=== PATIENT | female | born 1990 | race Caucasian/White ===

== ENCOUNTER 2020-10-27 00:36 | Emergency (ER) | payer MEDICAID ==
[~2020-10-27] VITALS: Ht 165.1 cm; Wt 50.0 kg
[~2020-10-27 00:36] MED LIST: AZIT-63 PO; HYDR-4383 PO; NO HOME MEDS
[2020-10-27] MEDS ORDERED: pantoprazole 40 MG vial IV ONE (00:45)
[2020-10-27] MEDS ORDERED: famotidine/PF 10 mg/ml inj IV ONE (00:45)
[2020-10-27] MEDS ORDERED: normal saline 1000ML IV soln IVB ONE (00:45)
[2020-10-27] MEDS ORDERED: ketorolac tromethamine 15mg/ml inj. IV ONE (00:45)
[2020-10-27] MEDS ORDERED: ondansetron/PF 4mg/2ml inj IV ONE (00:45)
[2020-10-27 01:20] LABS: BASOPHILS # (AUTO) 0.1 X10'3 (0-0.2); BASOPHILS % (AUTO) 0.6 % (0-1); EOSINOPHILS % (AUTO) 0.1 % (0-6); HEMATOCRIT 38.3 % (35.0-45.0); LYMPHOCYTES # (AUTO) 1.1 X10'3 (1.1-4.8); LYMPHOCYTES % (AUTO) 11.1 % (21-51); MEAN CORPUSCULAR HEMOGLOBIN 28.8 PG (27.0-31.0); MEAN CORPUSCULAR VOLUME 84.7 FL (78-98); MEAN PLATELET VOLUME 7.8 FL (7.4-10.4); MONOCYTES # (AUTO) 0.6 X10'3 (0-0.9); MONOCYTES % (AUTO) 5.8 % (2-12); NEUTROPHILS # (AUTO) 8.2 X10'3 (1.8-7.7); NEUTROPHILS % (AUTO) 82.4 % (42-75); PLATELET COUNT 294 X10'3 (140-440); RED BLOOD COUNT 4.52 X10'6 (4.20-5.60); RED CELL DISTRIBUTION WIDTH 13.4 % (11.5-14.5)
[2020-10-27 01:24] LABS: ALANINE AMINOTRANSFERASE 27 U/L (12-78); ALBUMIN 4.1 G/DL (3.4-5.0); ALBUMIN/GLOBULIN RATIO 1.1 (1.1-1.5); ALKALINE PHOSPHATASE 65 IU/L (46-116); ANION GAP 11 (8-16); ASPARTATE AMINO TRANSFERASE 19 U/L (10-37); BILIRUBIN,TOTAL 0.2 MG/DL (0.1-1.0); BLOOD UREA NITROGEN 22 MG/DL (7-18); BUN/CREATININE RATIO 24.7 (6.6-38.0); CALCIUM 9.2 MG/DL (8.5-10.1); CHLORIDE 102 MMOL/L (99-107); CREATININE 0.89 MG/DL (0.40-0.90); GLUCOSE 139 MG/DL (70-104); LIPASE 92 U/L (73-393); POTASSIUM 3.2 MMOL/L (3.5-5.1); SODIUM 140 MMOL/L (135-145); TOTAL PROTEIN 7.9 G/DL (6.4-8.2); eGFR 74 ML/MIN
[2020-10-27] MEDS ORDERED: potassium Cl 20 mEq SR tablet PO STA (01:35)
[2020-10-27] MEDS ORDERED: OMEP20CA15 PO (01:57)
[2020-10-27] MEDS ORDERED: FAMO20TA44 PO (01:57)
[2020-10-27] MEDS ORDERED: ONDA4TAB6 PO (01:57)
[2020-10-27] MEDS ORDERED: SUCR1TAB34 PO (01:57)
--- NOTE | 2020-10-27 02:06 | NUR ---
pt drank 16oz of water, no complaints of nausea or vomitting
[2020-10-27 02:19] VITALS: BP 125/86
== END 2020-10-27 02:49 | disposition home or self-care (01) ==
LOC: ER 00:37
DX: K52.9 Noninfective gastroenteritis and colitis, unspecified (principal); E87.6 Hypokalemia; Z86.2 Personal history of diseases of the blood and blood-forming organs and certain disorders involving the immune mechanism; Z88.0 Allergy status to penicillin; Z79.2 Long term (current) use of antibiotics; Z79.899 Other long term (current) drug therapy
CPT/HCPCS: 36415; 80053; 83690; 85025; 96361; 96374; 96375; 99284; C9113; J1885; J2405; J3490; J7030

== ENCOUNTER 2020-10-29 09:18 | Emergency (ER) | payer MEDICAID ==
[2020-10-29] VITALS (8 sets, daily range): BP systolic 113–130; BP diastolic 72–83
[~2020-10-29] VITALS: Ht 165.1 cm; Wt 50.0 kg
[~2020-10-29 09:18] MED LIST changes: +FAMO20TA44 PO; +OMEP20CA15 PO; +ONDA4TAB6 PO; +SUCR1TAB34 PO
[2020-10-29] MEDS ORDERED: LIDOcaine Viscous 15ml cup MM ONE (11:20)
[2020-10-29] MEDS ORDERED: mag hydrox/Alum hydrox/simeth 30ml oral suspension PO ONE (11:20)
[2020-10-29] MEDS ORDERED: pantoprazole 40 MG vial IV ONE (11:20)
[2020-10-29] MEDS ORDERED: normal saline 1000ml 1,000 ML IV ONE (11:20)
[2020-10-29 11:35] LABS: BASOPHILS % (AUTO) 0.2 % (0-1); EOSINOPHILS % (AUTO) 0.1 % (0-6); HEMATOCRIT 42.2 % (35.0-45.0); HEMOGLOBIN 13.8 g/dl (12.0-16.0); LYMPHOCYTES # (AUTO) 0.7 X10'3 (1.1-4.8); LYMPHOCYTES % (AUTO) 6.5 % (21-51); MEAN CORPUSCULAR HGB CONC 32.7 g/dL (33.0-36.5); MEAN CORPUSCULAR VOLUME 85.5 FL (78-98); MEAN PLATELET VOLUME 7.7 FL (7.4-10.4); MONOCYTES # (AUTO) 0.7 X10'3 (0-0.9); MONOCYTES % (AUTO) 6.5 % (2-12); NEUTROPHILS # (AUTO) 9.8 X10'3 (1.8-7.7); NEUTROPHILS % (AUTO) 86.7 % (42-75); PLATELET COUNT 282 X10'3 (140-440); RED BLOOD COUNT 4.94 X10'6 (4.20-5.60); RED CELL DISTRIBUTION WIDTH 13.4 % (11.5-14.5); WHITE BLOOD COUNT 11.3 X10'3 (4.5-11.0)
[2020-10-29 11:54] LABS: ALANINE AMINOTRANSFERASE 29 U/L (12-78); ALBUMIN 4.1 G/DL (3.4-5.0); ALKALINE PHOSPHATASE 62 IU/L (46-116); ANION GAP 9 (8-16); ASPARTATE AMINO TRANSFERASE 13 U/L (10-37); BILIRUBIN,TOTAL 0.4 MG/DL (0.1-1.0); BLOOD UREA NITROGEN 14 MG/DL (7-18); BUN/CREATININE RATIO 22.2 (6.6-38.0); CALCIUM 8.8 MG/DL (8.5-10.1); CHLORIDE 102 MMOL/L (99-107); CREATININE 0.63 MG/DL (0.40-0.90); GLUCOSE 103 MG/DL (70-104); LIPASE 54 U/L (73-393); SODIUM 138 MMOL/L (135-145); TOTAL PROTEIN 8.1 G/DL (6.4-8.2); eGFR > 90 ML/MIN
[2020-10-29] MEDS ORDERED: ondansetron/PF 4mg/2ml inj IV PRN ×2 (13:50→14:05)
[2020-10-29] MEDS ORDERED: ringers solution, lacted 1,000 ML IV SCH (13:50)
[2020-10-29] MEDS ORDERED: ondansetron/PF 4mg/2ml inj IV ONE (13:50)
[2020-10-29] MEDS ORDERED: hydrALAZINE 20mg/ml inj. IV PRN (13:50)
[2020-10-29] MEDS ORDERED: ringers solution, lacted 1,000 ML IV ONE (13:50)
[2020-10-29] MEDS ORDERED: morphine 2 MG/ML inj. syringe IV PRN ×3 (13:50→14:05)
[2020-10-29] MEDS ORDERED: labetalol 20mg/4ml (5mg/ml) syringe IV PRN (13:50)
[2020-10-29] MEDS ORDERED: fentaNYL/PF 50MCG/1 ML 2ML syringe IV PRN ×2 (13:50)
[2020-10-29] MEDS ORDERED: morphine 4 MG/ML inj SYRINge IV PRN (13:50)
[2020-10-29 14:00] LABS: CLARITY,URINE CLEAR (Clear); COLOR,URINE YELLOW (Yellow); GLUCOSE, URINE NEGATIVE (Neg); KETONES,URINE 40 mg/dl (Neg); LEUKOCYTE ESTERASE ,URINE NEGATIVE (Neg); NITRITES, URINE NEGATIVE (Neg); OCCULT BLOOD,URINE TRACE-INTACT (Neg); PH,URINE 5.5 (4.8-8.0); PROTEIN,URINE NEGATIVE (Neg); UROBILINOGEN,URINE 0.2 E.U/dL (0.2-1.0)
[2020-10-29 14:02] LABS: URINE AMPHETAMINE SCREEN NEGATIVE (Neg); URINE BARBITUATE SCREEN NEGATIVE (Neg); URINE BENZODIAZEPINES SCREEN NEGATIVE (Neg); URINE CANNABINOID SCREEN NEGATIVE (Neg); URINE COCAINE SCREEN NEGATIVE (Neg); URINE METHADONE SCREEN NEGATIVE (Neg); URINE OPIATE SCREEN NEGATIVE (Neg); URINE PHENCYCLIDINE SCREEN NEGATIVE (Neg)
[2020-10-29 14:04] LABS: UA COLLECTION TYPE CLN CATCH MIDSTREAM
[2020-10-29 14:05] LABS: WBC,URINE 0-4 /HPF (0-4)
[2020-10-29] MEDS ORDERED: normal saline 1000ml 1,000 ML IV SCH ×2 (14:05→14:50)
[2020-10-29] MEDS ORDERED: mag hydrox/Alum hydrox/simeth 30ml oral suspension PO PRN (14:05)
[2020-10-29] MEDS ORDERED: acetaminophen 325mg tablet PO PRN (14:05)
[2020-10-29] MEDS ORDERED: magnesium hydroxide 30ml (MOM) UD suspension PO PRN (14:05)
[2020-10-29 14:06] LABS: BACTERIA,URINE FEW /HPF (Neg); MUCUS STRANDS MODERATE /LPF (Neg); SQUAMOUS EPITHELIAL CELL,UR MODERATE /LPF (FEW)
[2020-10-29 14:20] LABS: URINE HCG NEGATIVE (NEG)
[2020-10-29] MEDS ORDERED: BUPIVAcaine/PF 2.5 mg/ml (0.25%) 30ml vial ONE (14:47)
[2020-10-29] MEDS ORDERED: CLINDAmcin 900mg/NS 50ml IVPB 50 ML IV ONE (14:50)
[2020-10-29] MEDS ORDERED: meperidine/PF 50mg/ml syringe ONE ×2 (15:14→16:13)
[2020-10-29] MEDS ORDERED: midazolam 2 mg/2 ml injection ONE (15:14)
[2020-10-29] MEDS ORDERED: dexamethasone sod phosphate 4mg/ml inj. ONE (15:15)
[2020-10-29] MEDS ORDERED: ondansetron/PF 4mg/2ml inj ONE (15:15)
[2020-10-29] MEDS ORDERED: LIDOcaine 2% (20mg/ml) 5ml vial ONE (15:15)
[2020-10-29] MEDS ORDERED: propofol inj 20 ML IV ONE (15:15)
[2020-10-29] MEDS ORDERED: neostigmine methylsulfate 1 MG/ML 10ml vial ONE (15:16)
[2020-10-29] MEDS ORDERED: glycopyrrolate 0.2mg/ml inj ONE (15:16)
[2020-10-29] MEDS ORDERED: sevoflurane 250ml liquid IH ONE (15:19)
[2020-10-29] MEDS ORDERED: clindamycin-Cleocin 900mg/D5W 50 ML IV ONE (15:21)
[2020-10-29] MEDS ORDERED: clindamycin phosphate 150mg/ml inj. ONE (15:28)
[2020-10-29] MEDS ORDERED: labetalol 20mg/4ml (5mg/ml) syringe IV ONE (15:48)
[2020-10-29] MEDS ORDERED: rocuronium 10mg/ml inj IV ONE (15:48)
[2020-10-29] MEDS ORDERED: naloxone 0.4 mg/ml inj ONE (16:27)
--- NOTE | 2020-10-29 16:40 | NUR ---
Received from OR via BED , accompanied by Anesthesiologist DR BRAR and report given by Anesthesiolgist. PATIENT WAKING UP, DENIES PAIN, V/S WNL, NEUROVASCULAR CHECKS INTACT, 20G PIV LUE, SCD ON, BANDAIDS TO LAP SIGHTS OF ABDOMEN CDI.
[2020-10-29] MEDS ORDERED: HYDROcodone/acetaminophen 10/325mg tab PO ONE (17:20)
--- NOTE | 2020-10-29 17:50 | NUR ---
PATIENT A&OX4, DENIES PAIN, V/S WNL, NEUROVASCULAR CHECKS INTACT, 20G PIV LUE, SCD ON, BANDAIDS TO LAP SIGHTS OF ABDOMEN CDI. .. I HAVE REVIEWED D/C INSTRUCTIONS WITH PATIENT AND FAMILY HAVE VERBALIZED UNDERSTANDING.PATIENT WAS D/C HOME WITH ALL BELONGINGS AND FAMILY GAVE TRANSPORT HOME.
== END 2020-10-29 17:50 | disposition home or self-care (01) ==
LOC: ER 09:19 → ED HOLD 14:02 → UNDOADMOB 14:02 → UNDODISOB 17:50
DX: K81.0 Acute cholecystitis (principal); Z20.822 Contact with and (suspected) exposure to COVID-19; Z88.0 Allergy status to penicillin; Z79.2 Long term (current) use of antibiotics; Z79.899 Other long term (current) drug therapy
CPT/HCPCS: 36415; 47562; 76700; 80053; 80305; 81001; 81025; 83690; 85025; 87426; 96361; 96374; 96375; 99285; C9113; J1100; J2001; J2175; J2250; J2310; J2405; J2704; J2710; J3010; J3490; J7030; J7120; A4215; A4618; A7000; G0378